=== PATIENT | male | born 1970 | race Caucasian/White ===

== ENCOUNTER 2024-03-06 07:16 | Day surgery (SDC) | payer BC ==
[2024-03-06] MEDS ORDERED: Oxymetazoline HCl 0.05% (30 ML BOT) ONE (07:45)
[2024-03-06] MEDS ORDERED: PROPOFOL 20 ML ONE (08:46)
[2024-03-06] MEDS ORDERED: fentaNYL PF 100 MCG/2 ML SYRINGE ONE (08:48)
[2024-03-06] MEDS ORDERED: SUGAMMADEX SODIUM 200 MG/2 ML VIAL ONE (08:48)
[2024-03-06] MEDS ORDERED: Rocuronium Bromide 10 MG/ML (10ML VIAL) ONE (08:48)
[2024-03-06] MEDS ORDERED: EPINEPHrine 1 MG/ML VIAL ONE (08:50)
[2024-03-06] MEDS ORDERED: Lidocaine 2% 6 ML (Jelly) SYR ONE (09:23)
[2024-03-06] MEDS ORDERED: Ondansetron PF 4 MG/2 ML Vial ONE (09:41)
[2024-03-06] MEDS ORDERED: Dexamethasone 20 MG/5 ML VIAL ONE (09:41)
[2024-03-06] MEDS ORDERED: HYDROmorphone 0.5 MG/0.5 ML SYRINGE ONE ×2 (10:21→10:24)
== END 2024-03-06 11:20 | disposition home or self-care (01) ==
LOC: SDC 07:16
PROVIDERS: ATTEND Otolaryngology Plastic Surgery within the Head & Neck
PROC: 09TV8ZZ Resection of Left Ethmoid Sinus, Via Natural or Artificial Opening Endoscopic (ICD-10-PCS; principal; 2024-03-06)
PROC: 09BM0ZZ Excision of Nasal Septum, Open Approach (ICD-10-PCS; principal; 2024-03-06)
PROC: 099Q8ZZ Drainage of Right Maxillary Sinus, Via Natural or Artificial Opening Endoscopic (ICD-10-PCS; principal; 2024-03-06)
PROC: 099R8ZZ Drainage of Left Maxillary Sinus, Via Natural or Artificial Opening Endoscopic (ICD-10-PCS; principal; 2024-03-06)
DX: J34.2 Deviated nasal septum (principal); J34.3 Hypertrophy of nasal turbinates; J32.4 Chronic pansinusitis; J33.8 Other polyp of sinus; J34.89 Other specified disorders of nose and nasal sinuses; F32.A Depression, unspecified; E78.00 Pure hypercholesterolemia, unspecified; Z79.899 Other long term (current) drug therapy
CPT/HCPCS: J0171; J1100; J1170; J2405; J2704